=== PATIENT | male | born 1965 | race American Indian/Alaskan Native ===

== ENCOUNTER 2019-06-12 02:37 | Emergency (ER) | payer OTHER ==
[2019-06-12] MEDS ORDERED: NORCO 5/325 PO ONE (03:07)
--- NOTE | 2019-06-12 03:12 | Emergency Department Report ---
<MAHAD LIRA - Last Filed: 06/12/19 03:51> ED Lower Extremity HPI - General Chief Complaint: Extremity Injury, Lower Stated Complaint: RT FOOT INJURY Time Seen by Provider: 06/12/19 03:07 Source: patient Mode of arrival: Ambulatory Limitations: No Limitations - History of Present Illness Initial Comments: tp works as hog handler at [employer] states he dropped a heavy suitecase on his right foot tonight now will pain and swelling , pain is 8/10 exacerbated by weight bearing pain is relieved by nothing, there is no abrasion no laceration no deformity, no numbness or tingling. pt ambulated into ed tonight Complaint: foot injury Onset/Timin -: hour(s) Injury: Foot: Right Type of Injury: blunt Place: work Severity: moderate Severity scale (0 -10): 5 Improves With: nothing Worsens With: weight bearing, movement, palpation Context: direct blow Associated Symptoms: swelling, able to partially bear weight. denies: numbness, tingling - Related Data Previous Rx's Medication Instructions Recorded Last Taken Type Cyclobenzaprine [Flexeril] 10 mg PO TID PRN #30 tablet 06/12/19 Unknown Rx Naproxen [Naprosyn] 500 mg PO BID PRN #30 tablet 06/12/19 Unknown Rx Allergies Allergy/AdvReac Type Severity Reaction Status Date / Time No Known Allergies Allergy Unverified 06/12/19 02:50 ED Review of Systems Constitutional: denies: chills, fever Eyes: denies: eye pain, eye discharge, vision change ENT: denies: ear pain, throat pain Respiratory: denies: cough, shortness of breath, wheezing Cardiovascular: denies: chest pain, palpitations Endocrine: no symptoms reported Gastrointestinal: denies: abdominal pain, nausea, diarrhea Genitourinary: denies: urgency, dysuria Musculoskeletal: other (foot pain ). denies: back pain, joint swelling, arthralgia Skin: denies: rash, lesions Neurological: denies: headache, weakness, paresthesias Psychiatric: denies: anxiety, depression Hematological/Lymphatic: denies: easy bleeding, easy bruising ED Past Medical Hx - Past Medical History Previous Medical History?: No - Surgical History Past Surgical History?: No - Social History Smoking Status: Never Smoker Substance Use Type: Alcohol - Medications Home Medications: Home Medications Medication Instructions Recorded Confirmed Last Taken Type Cyclobenzaprine [Flexeril] 10 mg PO TID PRN #30 tablet 06/12/19 Unknown Rx Naproxen [Naprosyn] 500 mg PO BID PRN #30 tablet 06/12/19 Unknown Rx ED Physical Exam - General Limitations: No Limitations General appearance: alert, in no apparent distress - Head Head exam: Present: atraumatic, normocephalic - Eye Eye exam: Present: normal appearance, PERRL, EOMI Pupils: Present: normal accommodation - ENT ENT exam: Present: mucous membranes moist - Neck Neck exam: Present: normal inspection, full ROM - Respiratory Respiratory exam: Present: normal lung sounds bilaterally. Absent: respiratory distress, wheezes, stridor, chest wall tenderness - Cardiovascular Cardiovascular Exam: Present: regular rate, normal rhythm, normal heart sounds. Absent: systolic murmur, diastolic murmur, rubs, gallop - GI/Abdominal GI/Abdominal exam: Present: soft, normal bowel sounds. Absent: distended, tenderness, bruit, hernia - Rectal Rectal exam: Present: deferred - Extremities Exam Extremities exam: Present: full ROM, tenderness (right dorsal foot ), normal capillary refill. Absent: pedal edema, joint swelling, calf tenderness - Expanded Lower Extremity Exam Right Foot/Toe exam: Present: full ROM, tenderness, swelling. Absent: abrasion, laceration, ecchymosis, deformity, crepidus, dislocation, erythema, amputation, puncture wound, foreign body, calcaneal tenderness, tenderness at base of 5th metatarsal, nail avulsion, subungual hematoma Neuro vascular tendon exam: Absent: pulse deficit, abnormal cap refill, motor deficit, sensory deficit, tendon deficit, foot drop Gait: Positive: observed and limited by pain - Back Exam Back exam: Present: normal inspection, full ROM. Absent: tenderness, CVA tenderness (R), CVA tenderness (L), muscle spasm, paraspinal tenderness, rash noted - Neurological Exam Neurological exam: Present: alert, oriented X3, CN II-XII intact, normal gait, reflexes normal. Absent: motor sensory deficit - Expanded Neurological Exam Expanded Patient oriented to: Present: person, place, time Speech: Present: fluid speech Sensory exam: Lower Extremity Light Touch: Normal, Lower Extremity Pin Prick: Normal, Lower Extremity Temperature: Normal, LE 2 Point Discrimination: Normal Motor strength exam: RUE: 5, LUE: 5, RLE: 5, LLE: 5 DTR: knee (R): 2+, knee (L): 2+, ankle (R): 2+, ankle (L): 2+ Best Eye Response ([place]): (4) open spontaneously Best Motor Response ([place]): (6) obeys commands Best Verbal Response ([place]): (5) oriented [place] Total: 15 - Psychiatric Psychiatric exam: Present: normal affect, normal mood - Skin Skin exam: Present: warm, dry, intact, normal color. Absent: rash ED Lower Extremity MDM - Medical Decision Making this is a a foot sprain no fracture noted on xray plan, post op shoe , nsaids, rice therapy follow up with ortho, follow up with workmans comp doctor as directed by employer. ED Disposition Clinical Impression: Foot sprain Qualifiers: Encounter type: initial encounter Laterality: right Qualified Code(s): S93.601A - Unspecified sprain of right foot, initial encounter Disposition: TO HOME OR SELFCARE Is pt being admited?: No Does the pt Need Aspirin: No Condition: Stable Instructions: Foot Sprain (ED) Prescriptions: Cyclobenzaprine [Flexeril] 10 mg PO TID PRN #30 tablet PRN Reason: Muscle Spasm Naproxen [Naprosyn] 500 mg PO BID PRN #30 tablet PRN Reason: pain Referrals: MADI ISAACS MD [Primary Care Provider] - 3-5 Days RHETT STONE MD [Staff Physician] - 3-5 Days Forms: Work/School Release Form(ED) Time of Disposition: 03:56 <CAROL WARD P - Last Filed: 06/12/19 05:29> ED Review of Systems ROS: Stated complaint: RT FOOT INJURY Other details as noted in HPI ED Course Vital Signs 06/12/19 06/12/19 02:47 04:25 Temperature 98.6 F Pulse Rate 89 78 Respiratory 18 16 Rate Blood Pressure 152/97 Blood Pressure 142/79 [Left] O2 Sat by Pulse 98 98 Oximetry Critical care attestation.: If time is entered above; I have spent that time in minutes in the direct care of this critically ill patient, excluding procedure time. ED Disposition Is pt being admited?: No
--- NOTE | 2019-06-12 04:05 | XRay Report ---
RIGHT FOOT 2 VIEWS INDICATION / CLINICAL INFORMATION: injury. COMPARISON: None available. FINDINGS: Small Achilles spur. No other significant skeletal abnormality. Signer Name: Emile Almonte MD FACGermania Signed: 06/12/2019 4:01 AM Workstation Name: [id number]
[2019-06-12 04:27] VITALS: BP 142/79
== END 2019-06-12 04:26 | disposition home or self-care (01) ==
LOC: ED 02:37
DX: S93.601A Unspecified sprain of right foot, initial encounter (principal); Z79.899 Other long term (current) drug therapy; W20.8XXA Other cause of strike by thrown, projected or falling object, initial encounter; Y93.89 Activity, other specified; Y92.89 Other specified places as the place of occurrence of the external cause; Y99.0 Civilian activity done for income or pay
CPT/HCPCS: 99283

== ENCOUNTER 2019-07-15 12:37 | Emergency (ER) | payer OTHER ==
[2019-07-15] MEDS ORDERED: XYLOCAINE 2%/EPI 1:100,000 INFILTRATI ONE (15:23)
--- NOTE | 2019-07-15 15:46 | Emergency Department Report ---
HPI - General Chief Complaint: Laceration/Recheck/Suture Time Seen by Provider: 07/15/19 15:10 - HPI HPI: 53-year-old -Chinese male presents to the emergency department with a laceration to the left forearm that occurred just prior to arrival. He actually cut himself on a boxer operator. His last tetanus vaccination was greater than 5 years ago. No significant past medical history. He did not take anything for his symptoms prior to arrival. ED Past Medical Hx - Past Medical History Previous Medical History?: No - Surgical History Past Surgical History?: No - Social History Smoking Status: Never Smoker Substance Use Type: Alcohol - Medications Home Medications: Home Medications Medication Instructions Recorded Confirmed Last Taken Type Cyclobenzaprine [Flexeril] 10 mg PO TID PRN #30 tablet 06/12/19 Unknown Rx Naproxen [Naprosyn] 500 mg PO BID PRN #30 tablet 06/12/19 Unknown Rx ED Review of Systems ROS: Stated complaint: CUT LT ARM Other details as noted in HPI Comment: All other systems reviewed and negative Constitutional: denies: chills, fever Musculoskeletal: myalgia. denies: joint swelling Skin: other (laceration). denies: rash Neurological: denies: numbness, paresthesias Physical Exam - Physical Exam Vital Signs: Vital Signs 07/15/19 12:45 Temperature 98.2 F Pulse Rate 99 H Respiratory 18 Rate Blood Pressure 138/92 O2 Sat by Pulse 99 Oximetry Physical Exam: GENERAL: The patient is well-developed well-nourished. HENT: Normocephalic. Atraumatic. Patient has moist mucous membranes. EYES: Extraocular motions are intact. NECK: Supple. Trachea is midline. ABDOMEN: There is no abdominal distention. SKIN: There is a 3 cm linear laceration to the mid left volar forearm. NEURO: The patient is awake, alert, and oriented. The patient is cooperative. The patient has no focal neurologic deficits. Normal speech. MUSCULOSKELETAL: Mild tenderness to palpation to the left forearm where the patient has a laceration. ED Course Vital Signs 07/15/19 12:45 Temperature 98.2 F Pulse Rate 99 H Respiratory 18 Rate Blood Pressure 138/92 O2 Sat by Pulse 99 Oximetry - Laceration /Wound Repair Right Arm Wound Location: upper extremity (left volar forearm) Wound Explored: no foreign body removed Irrigated w/ Saline (ccs): 30 Anesthesia: Lidocaine w/ Epi Volume Anesthetic (ccs): 3 Wound Repaired With: sutures Suture Size/Type: 5:0, proline Number of Sutures: 7 Layer Closure?: No Sterile Dressing Applied?: Yes ED Medical Decision Making - Medical Decision Making Patient presents with a 3 cm linear left volar forearm laceration after accidentally cutting himself with a boxer operator. The wound appears clean without any signs of foreign body. The laceration was closed and well approximated with about 7 simple interrupted sutures. We discussed wound care and monitoring for infection. He will return to the ER with any worsening of symptoms or any acute distress. Critical Care Time: No Critical care attestation.: If time is entered above; I have spent that time in minutes in the direct care of this critically ill patient, excluding procedure time. ED Disposition Clinical Impression: Laceration of left forearm Qualifiers: Encounter type: initial encounter Qualified Code(s): S51.812A - Laceration without foreign body of left forearm, initial encounter Disposition: TO HOME OR SELFCARE Is pt being admited?: No Condition: Stable Instructions: Suture Care (ED), Laceration (ED) Additional Instructions: The sutures will need to be removed in 7 days and can be done so at a primary care office, urgent care, or in the emergency department. You will need to be seen sooner with any signs or symptoms of infection such as increased pain, surrounding redness, swelling, discharge of pus or development of fever. The area can be cleaned with soap and water but should then be kept dry. Referrals: PRIMARY CARE, [Primary Care Provider] - 2-3 Days Time of Disposition: 15:45
[2019-07-15] MEDS ORDERED: XYLOCAINE 1%/ EPI 1:100,000 INFILTRATI NR (16:00)
[2019-07-15] MEDS ORDERED: BOOSTRIX IM ONE ×2 (16:01→16:03)
[2019-07-15 16:09] VITALS: BP 134/90
== END 2019-07-15 16:08 | disposition home or self-care (01) ==
LOC: ED 12:37
DX: S51.812A Laceration without foreign body of left forearm, initial encounter (principal); Z79.899 Other long term (current) drug therapy; Y28.8XXA Contact with other sharp object, undetermined intent, initial encounter; Y93.89 Activity, other specified; Y92.89 Other specified places as the place of occurrence of the external cause; Y99.8 Other external cause status
CPT/HCPCS: 90471; 90715